=== PATIENT | male | born 1970 | race Caucasian/White ===

== ENCOUNTER 2016-08-15 00:34 | Emergency (ER) | payer MEDICAID ==
[2015-11-20 12:49] VITALS: BMI 29.9
[~2016-08-15 00:34] MED LIST: CATAPRES0.2 MG PO; HYDROCODONE-APA1 TAB PO; KLONOPIN0.5 MG PO; LITHIUM CARBON300 MG PO; LOPRESSOR25 MG PO; PRINZIDE 20/12.1 TA1 PO; PROTONIX40 MG PO; PROZAC40 MG PO; REMERON15 MG PO; REMERON30 MG PO; XANAX1 MG PO; ZANTAC300 MG PO
[2016-08-15 01:14] LABS: BASOPHILS 0.2 % (0.0-2.0); EOSINOPHILS 0.1 % (0-7); HEMATOCRIT 48.9 % (42.0-54.0); HEMOGLOBIN 17.1 g/dL (13.5-17.5); IMMATURE GRANULOCYTES 0.3 % (0-5); LYMPHOCYTES 44.5 % (15-50); MCH 30.3 pg (26.0-34.0); MCV 86.7 fL (80.0-100.0); MEAN PLATELET VOLUME 8.8 fL (7.4-10.4); MONOCYTES 9.8 % (2-11); NEUTROPHILS 45.1 % (40-80); RBC 5.64 10x6/uL (4.20-6.10); RDW 15.8 % (11.5-14.5); WBC 11.5 10x3/uL (4.8-10.8)
[2016-08-15 01:28] LABS: PLATELET COUNT 313 10x3/uL (130-400)
[2016-08-15 01:53] LABS: ALBUMIN 4.7 g/dL (3.4-5.0); ALKALINE PHOSPHATASE 83 U/L (46-116); ALT (SGPT) 44 U/L (10-68); BILIRUBIN - TOTAL 0.21 mg/dL (0.2-1.3); CALC OSMOLALITY 278 mosm/kg (275-300); CALCIUM 9.5 mg/dL (8.5-10.1); CARBON DIOXIDE 27.1 mmol/L (21.0-32.0); CHLORIDE - SERUM 100 mmol/L (98-107); CREATININE - SERUM 1.1 mg/dL (0.6-1.3); POTASSIUM - SERUM 3.7 mmol/L (3.5-5.1); PROTEIN - SERUM 8.5 g/dL (6.4-8.2); SODIUM 140 mmol/L (136-145); UREA NITROGEN 4 mg/dL (7-18); eGFR NON AFRICAN AMERICAN 77 mL/min (90-120)
[2016-08-15 01:55] LABS: GLUCOSE 152 mg/dL (74-106)
[2016-08-15 02:00] LABS: AMYLASE - SERUM 63 U/L (25-115); LIPASE 88 U/L (73-393)
== END 2016-08-15 03:17 | disposition home or self-care (01) ==
LOC: D.ER 00:34
PROVIDERS: Family Medicine
DX: K29.00 Acute gastritis without bleeding (principal); I10 Essential (primary) hypertension; F41.9 Anxiety disorder, unspecified; K86.1 Other chronic pancreatitis; B19.20 Unspecified viral hepatitis C without hepatic coma

== ENCOUNTER → 2016-11-01 12:21 | Outpatient (CLI) | payer MEDICAID ==
[2015-11-20 12:49] VITALS: BMI 29.9
[~2016-11-01 12:21] MED LIST changes: +LISINOPRIL10 MG PO; +METOPROLOL TART50 MG PO; +REVIA50 MG PO; +ZOFRAN4 MG PO
[2016-11-01 14:27] LABS: BASOPHILS 0.3 % (0.0-2.0); EOSINOPHILS 0.4 % (0-7); HEMATOCRIT 45.2 % (42.0-54.0); HEMOGLOBIN 15.4 g/dL (13.5-17.5); IMMATURE GRANULOCYTES 0.5 % (0-5); LYMPHOCYTES 26.9 % (15-50); MCH 31.5 pg (26.0-34.0); MCHC 34.1 g/dL (31.0-37.0); MCV 92.4 fL (80.0-100.0); MEAN PLATELET VOLUME 9.6 fL (7.4-10.4); MONOCYTES 11.1 % (2-11); NEUTROPHILS 60.8 % (40-80); PLATELET COUNT 263 10x3/uL (130-400); RBC 4.89 10x6/uL (4.20-6.10); WBC 10.7 10x3/uL (4.8-10.8)
[2016-11-01 14:41] LABS: ALBUMIN 4.4 g/dL (3.4-5.0); ALKALINE PHOSPHATASE 79 U/L (46-116); ALT (SGPT) 48 U/L (10-68); BILIRUBIN - TOTAL 0.36 mg/dL (0.2-1.3); CALC OSMOLALITY 269 mosm/kg (275-300); CALCIUM 9.4 mg/dL (8.5-10.1); CARBON DIOXIDE 26.9 mmol/L (21.0-32.0); CHLORIDE - SERUM 95 mmol/L (98-107); CREATININE - SERUM 0.9 mg/dL (0.6-1.3); GLUCOSE 104 mg/dL (74-106); POTASSIUM - SERUM 4.3 mmol/L (3.5-5.1); SODIUM 136 mmol/L (136-145); UREA NITROGEN 7 mg/dL (7-18); eGFR NON AFRICAN AMERICAN > 90 mL/min (90-120)
[2016-11-03 11:17] LABS: TESTOSTERONE - SERUM 1325 ng/dL (348-1197)
== END | disposition home or self-care (01) ==
LOC: D.LABREF 12:21
PROVIDERS: Family Medicine
DX: I10 Essential (primary) hypertension (principal); E23.3 Hypothalamic dysfunction, not elsewhere classified

== ENCOUNTER 2016-11-17 09:25 | Inpatient (IN) | payer MEDICAID ==
[~2016-11-17] VITALS: Ht 180.3 cm; Wt 90.9 kg
[~2016-11-17 09:25] MED LIST changes: -LISINOPRIL10 MG PO; -METOPROLOL TART50 MG PO; -REVIA50 MG PO; -ZOFRAN4 MG PO
[2016-11-17 10:04] LABS: APPEARANCE HAZY (CLEAR); COLOR DK YELLOW (YELLOW)
[2016-11-17 10:05] LABS: BILIRUBIN NEGATIVE (NEGATIVE); GLUCOSE 50 mg/dL (NEGATIVE); KETONE MODERATE mg/dL (NEGATIVE); LEUKOCYTE ESTERASE TRACE (NEGATIVE); NITRITE NEGATIVE (NEGATIVE); PROTEIN 2+ mg/dL (NEGATIVE); SPECIFIC GRAVITY 1.025 (1.005-1.020); UROBILINOGEN NORMAL (NORMAL); WHITE CELLS - URINE OCC /hpf (0-5)
[2016-11-17 10:06] LABS: BACTERIA FEW /hpf (NONE SEEN); EPITHELIAL CELLS RARE /hpf (0-5)
[2016-11-17 10:06] LABS: BASOPHILS 0.2 % (0.0-2.0); EOSINOPHILS 0.4 % (0-7); HEMATOCRIT 54.1 % (42.0-54.0); HEMOGLOBIN 18.7 g/dL (13.5-17.5); IMMATURE GRANULOCYTES 0.4 % (0-5); LYMPHOCYTES 18.2 % (15-50); MCH 32.7 pg (26.0-34.0); MCHC 34.6 g/dL (31.0-37.0); MCV 94.6 fL (80.0-100.0); MEAN PLATELET VOLUME 9.6 fL (7.4-10.4); NEUTROPHILS 71.8 % (40-80); PLATELET COUNT 242 10x3/uL (130-400); RBC 5.72 10x6/uL (4.20-6.10); RDW 14.2 % (11.5-14.5); WBC 11.3 10x3/uL (4.8-10.8)
[2016-11-17 10:47] LABS: ALBUMIN 4.2 g/dL (3.4-5.0); ALKALINE PHOSPHATASE 100 U/L (46-116); ALT (SGPT) 52 U/L (10-68); AMYLASE - SERUM 154 U/L (25-115); BILIRUBIN - TOTAL 1.48 mg/dL (0.2-1.3); CALC OSMOLALITY 267 mosm/kg (275-300); CALCIUM 9.6 mg/dL (8.5-10.1); CARBON DIOXIDE 22.2 mmol/L (21.0-32.0); CHLORIDE - SERUM 94 mmol/L (98-107); CREATININE - SERUM 0.8 mg/dL (0.6-1.3); GLUCOSE 141 mg/dL (74-106); LIPASE 1419 U/L (73-393); POTASSIUM - SERUM 4.4 mmol/L (3.5-5.1); PROTEIN - SERUM 8.2 g/dL (6.4-8.2); SODIUM 133 mmol/L (136-145); UREA NITROGEN 12 mg/dL (7-18); eGFR NON AFRICAN AMERICAN > 90 mL/min (90-120)
[2016-11-17] MEDS ORDERED: METOPROLOL TART50 MG PO (14:40)
[2016-11-17 14:58] VITALS: BP 195/130; BMI 29.3
--- NOTE | 2016-11-17 15:48 | NUR ---
PATIENT STILL CO PAIN. SPOKE WITH DR. MENA AND A 1 TIME ORDER OF DILAUDID 1 MG GIVEN IV.
[2016-11-17 20:00] VITALS: BP 183/118
--- NOTE | 2016-11-17 21:58 | NUR ---
ZOFRAN 4 MG IVP GIVEN SLOWLY FOR NAUSEA.
--- NOTE | 2016-11-17 23:11 | NUR ---
ATIVAN 1 MG IVP GIVEN PER RQUEST FOR SLEEP AND ANXIETY.
--- NOTE | 2016-11-17 23:30 | NUR ---
DR. FRANCO CALLED RE: NEEDING MORE PAIN MEDICATION.
--- NOTE | 2016-11-18 00:10 | NUR ---
REBECA NUR APN RETURNED CALL. NEW ORDER RECEIVED AND NOTED. PHNERGAN 12.5 MG IM GIVEN IN LEFT UPPER OUTER QUAD.
[2016-11-18 00:49] VITALS: BP 132/20
--- NOTE | 2016-11-18 01:04 | NUR ---
DILAUDID 1 MG IVP SLOWLY GIVEN FOR LEVEL#7 ABDOMEN PAIN.
--- NOTE | 2016-11-18 03:08 | NUR ---
DILAUDID 1 MG IVP SLOWLY GIVEN FOR LEVEL #8 ABDOMINAL PAIN.
[2016-11-18 05:42] VITALS: BP 131/85
[2016-11-18 05:45] LABS: BASOPHILS 0.1 % (0.0-2.0); EOSINOPHILS 0.2 % (0-7); HEMATOCRIT 52.5 % (42.0-54.0); HEMOGLOBIN 17.7 g/dL (13.5-17.5); IMMATURE GRANULOCYTES 0.3 % (0-5); LYMPHOCYTES 14.5 % (15-50); MCH 32.1 pg (26.0-34.0); MCHC 33.7 g/dL (31.0-37.0); MCV 95.3 fL (80.0-100.0); MEAN PLATELET VOLUME 9.5 fL (7.4-10.4); MONOCYTES 8.1 % (2-11); NEUTROPHILS 76.8 % (40-80); PLATELET COUNT 227 10x3/uL (130-400); RBC 5.51 10x6/uL (4.20-6.10); RDW 14.3 % (11.5-14.5); WBC 12.4 10x3/uL (4.8-10.8)
[2016-11-18 05:53] LABS: INR 0.92 (0.85-1.17); PROTIME 12.2 SECONDS (11.6-15.0)
--- NOTE | 2016-11-18 06:00 | NUR ---
WENT OUTSIDE WITH GIRLFRIEND TO SMOKE PRIOR TO RECEIVING PAIN MEDICATION. WILL CONTINUE TO MONITOR.
[2016-11-18 06:15] LABS: ALBUMIN 3.8 g/dL (3.4-5.0); ALKALINE PHOSPHATASE 87 U/L (46-116); ALT (SGPT) 40 U/L (10-68); BILIRUBIN - TOTAL 1.08 mg/dL (0.2-1.3); CALC OSMOLALITY 272 mosm/kg (275-300); CALCIUM 9.3 mg/dL (8.5-10.1); CHLORIDE - SERUM 97 mmol/L (98-107); GLUCOSE 124 mg/dL (74-106); PHOSPHOROUS 3.1 mg/dL (2.5-4.9); POTASSIUM - SERUM 3.8 mmol/L (3.5-5.1); SODIUM 136 mmol/L (136-145); UREA NITROGEN 13 mg/dL (7-18); eGFR NON AFRICAN AMERICAN 86 mL/min (90-120)
[2016-11-18 06:18] LABS: AMYLASE - SERUM 252 U/L (25-115); CARBON DIOXIDE 28.2 mmol/L (21.0-32.0); LIPASE 2224 U/L (73-393)
--- NOTE | 2016-11-18 08:16 | NUR ---
UPON MEETING PT NOTICED R.HAND PIV WAS INFILTRATED. D/C WITH CATHETER TIP FULLY INTACT. ATTEMPTED NEW STICK WITH CASTING HOUSE WORKER CECIL. NO ACCESS GRANTED, PERFORMANCE ANALYST WHO IS A RN ATTEMPTED AND STILL NO ACCESS SO I CALLED VASCULAR NURSE TO TRY. PT IS IN SEVERE PAIN ABDOMINALLY RATES ITS 10/10 REQUESTING HIS PRN PAIN MED AND NAUSEA MED HOWEVER WE NEED IV ACCESS. WILL CPOC.
[2016-11-18 08:22] VITALS: BP 145/100
--- NOTE | 2016-11-18 08:26 | NUR ---
ADMINISTERED PRN DILAUDID REQUESTED. ALSO ADMINISTERED PRN ZOFRAN AND EARLY R/T PT ACTIVELY VOMITING CLEAR EMESIS AND HIS LAST DOSE WAS GIVEN VIA AN INFILTRATED PIV. NEW ACCESS GAINED VIA YECENIA SHEPARD, VASCULAR NURSE. CHIARA CDI AND SWAB CAPS IN USE. RECONNECTED PT TO HIS IV FLUIDS ORDERED. PT DENIES ANY FURTHER NEEDS AT THIS TIME AND VOICED THANKS. CL IN REACH. WILL CPOC.
--- NOTE | 2016-11-18 08:46 | NUR ---
IV ACCESS-20 GAUGE, 1 3/4 CM CATHETER INSERTED IN LEFT UPPER ARM FOR ACCESS. YECENIA MORATAYA RN
--- NOTE | 2016-11-18 10:28 | NUR ---
PT C/O BEING ANXIOUS/AGITATED, REQUESTING AND PROVIDED WITH PRN ATIVAN. PT VOICED THANKS AND DENIES ANY FURTHER NEEDS AT THIS TIME. CL IN REACH. WILL CPOC.
--- NOTE | 2016-11-18 11:00 | NUR ---
OFFERED SCDS AND PT REFUSED FOR BEING AMBULATORY PT WALKS DOWNSTAIRS AND OFTEN IS OOB.
--- NOTE | 2016-11-18 13:15 | NUR ---
PT THROWING UP RED CONTRAST DRINK FROM CT. TALKED TO REBECA NUR APN WHO IS AT DESK AND GOT VERBAL ORDER TO CHANGE ZOFRAN FROM Q6 TO Q4. WILL ADMINISTER AND CPOC.
[2016-11-18 13:42] VITALS: Ht 180.3 cm; Wt 90.9 kg
[2016-11-18 15:03] LABS: CKMB 1.6 U/L (0.0-3.6); CREATINE KINASE 46 UL (21-232)
[2016-11-18 16:03] VITALS: BP 156/110
[2016-11-18 19:11] LABS: CKMB 1.7 U/L (0.0-3.6); CREATINE KINASE 54 UL (21-232)
[2016-11-18 19:15] LABS: TROPONIN-I 0.076 ng/mL (0.000-0.060)
[2016-11-18 20:00] VITALS: BP 136/93
--- NOTE | 2016-11-18 23:40 | NUR ---
RESUMED CARE OF PT, PT SLEEPING, BED IS LOW, SRX2, CALL LIGHT IN REACH, WILL CONTINUE TO MONITOR
--- NOTE | 2016-11-19 00:52 | NUR ---
PT ASKING TO BE UNHOOK FROM IV, WANTS TO GO OUTSIDE, TOLD HIM I WOULD LIKE FOR HIM TO STAY ON FLOOR
--- NOTE | 2016-11-19 01:11 | NUR ---
PT IS BACK IN ROOM
[2016-11-19 01:49] LABS: CKMB 1.7 U/L (0.0-3.6); CREATINE KINASE 43 UL (21-232); TROPONIN-I 0.037 ng/mL (0.000-0.060)
[2016-11-19 02:00] VITALS: BP 139/88
--- NOTE | 2016-11-19 03:07 | NUR ---
GAVE DIDULID AND ZOFRAN
[2016-11-19 04:30] VITALS: BP 127/70
[2016-11-19 05:46] LABS: BASOPHILS 0.1 % (0.0-2.0); EOSINOPHILS 0.4 % (0-7); HEMOGLOBIN 14.2 g/dL (13.5-17.5); IMMATURE GRANULOCYTES 0.3 % (0-5); LYMPHOCYTES 26.7 % (15-50); MCH 32.6 pg (26.0-34.0); MCHC 34.3 g/dL (31.0-37.0); MCV 95.2 fL (80.0-100.0); MEAN PLATELET VOLUME 9.5 fL (7.4-10.4); MONOCYTES 8.4 % (2-11); NEUTROPHILS 64.1 % (40-80)
[2016-11-19 05:49] LABS: HEMATOCRIT 41.4 % (42.0-54.0); PLATELET COUNT 180 10x3/uL (130-400); RBC 4.35 10x6/uL (4.20-6.10); WBC 7.2 10x3/uL (4.8-10.8)
[2016-11-19 05:59] LABS: INR 1.09 (0.85-1.17)
[2016-11-19 06:17] LABS: ALKALINE PHOSPHATASE 62 U/L (46-116); BILIRUBIN - TOTAL 0.95 mg/dL (0.2-1.3); CALC OSMOLALITY 273 mosm/kg (275-300); CALCIUM 8.6 mg/dL (8.5-10.1); CARBON DIOXIDE 25.7 mmol/L (21.0-32.0); CHLORIDE - SERUM 101 mmol/L (98-107); CREATININE - SERUM 0.8 mg/dL (0.6-1.3); GLUCOSE 114 mg/dL (74-106); LIPASE 391 U/L (73-393); POTASSIUM - SERUM 3.6 mmol/L (3.5-5.1); PROTEIN - SERUM 6.6 g/dL (6.4-8.2); SODIUM 137 mmol/L (136-145); UREA NITROGEN 10 mg/dL (7-18); eGFR NON AFRICAN AMERICAN > 90 mL/min (90-120)
[2016-11-19 06:18] LABS: ALT (SGPT) 27 U/L (10-68); AMYLASE - SERUM 85 U/L (25-115)
[2016-11-19 07:51] VITALS: BP 144/91
--- NOTE | 2016-11-19 07:51 | NUR ---
AWAKE CO OF PAIN( # 7). REVIEWED PAIN MED AND NAUSEA MED TIMES. PT UNDERSTANDS AND VERBALIZES THIS. PT ALSO STATES HE IS HUNGRY. BANANA BAG GOING @[address] @ 102. WILL CONTINUE TO MONITOR.
--- NOTE | 2016-11-19 11:00 | NUR ---
ASSUMED CARE FOR THIS PT FOR THE REMAINDER OF [employer] DAY[employer]. INTRODUCED MYSELF TO PT PRIMARY RN FOR TODAY. NO CURRENT NEEDS AT THIS TIME. WILL CHECK CHART ORDERS AND CPOC.
[2016-11-19 12:00] VITALS: BP 151/100
--- NOTE | 2016-11-19 12:47 | NUR ---
PT LEAVING FOR CT SCAN.
--- NOTE | 2016-11-19 13:15 | NUR ---
PT BACK FROM CT. RESTING QUIETLY IN BED WITH VISITOR AT BEDSIDE. DENIES ANY CURRENT NEEDS. WILL CPOC.
--- NOTE | 2016-11-19 15:14 | NUR ---
PT C/O SEVERE ABDOMINAL PAIN REQUESTED AND PROVIDED WITH PRN DILAUDID ALONG WITH ZOFRAN R/T NAUSEA. PT HAS FRIEND AT BEDSIDE VISITING. DENIES ANY FURTHER NEEDS. WILL CPOC.
--- NOTE | 2016-11-19 19:30 | NUR ---
RECEIVED REPORT, PT IS UP ABLIB, IV-L. UPPER ARM- BAN. @30, BED IS LOW, SRX2, CALL LIGHT IN REACH, WILL CONTINUE TO MONITOR
[2016-11-19 20:23] VITALS: BP 142/102
--- NOTE | 2016-11-19 21:57 | NUR ---
PT RESTING SOUNDLY WITHOUT C/O OR DISTRESS NOTED. NO NEEDS VOICED. CALL LIGHT WITHIN REACH. WILL CONT TO MONITOR.
--- NOTE | 2016-11-19 23:13 | NUR ---
GAVE DIDULID AND ZOFRAN, WILL CONTINUE TO MONITOR
[2016-11-20 00:07] VITALS: BP 165/111
--- NOTE | 2016-11-20 01:53 | NUR ---
GAVE ZOFRMIGUEL AND HARRISON
[2016-11-20 04:26] VITALS: BP 142/88
[2016-11-20 06:52] LABS: BASOPHILS 0.1 % (0-2); EOSINOPHILS 0.6 % (0-7); HEMATOCRIT 41.4 % (42.0-54.0); HEMOGLOBIN 13.9 g/dL (13.5-17.5); IMMATURE GRANULOCYTES 0.3 % (0-5); LYMPHOCYTES 23.7 % (15-50); MCH 32.1 pg (26.0-34.0); MCHC 33.6 g/dL (31.0-37.0); MCV 95.6 fL (80.0-100.0); MEAN PLATELET VOLUME 9.5 fL (7.4-10.4); MONOCYTES 7.1 % (2-11); NEUTROPHILS 68.2 % (40-80); PLATELET COUNT 182 10x3/uL (130-400); RBC 4.33 10x6/uL (4.20-6.10); RDW 13.9 % (11.5-14.5); WBC 7.1 10x3/uL (4.8-10.8)
[2016-11-20 07:01] LABS: INR 1.02 (0.85-1.17); PROTIME 13.2 SECONDS (11.6-15.0)
--- NOTE | 2016-11-20 07:04 | NUR ---
0700-AM ROUNDING DONE WITH PATIENT NOT IN HIS ROOM.
[2016-11-20 07:10] LABS: ALBUMIN 3.3 g/dL (3.4-5.0); ALKALINE PHOSPHATASE 67 U/L (46-116); BILIRUBIN - TOTAL 0.84 mg/dL (0.2-1.3); CALC OSMOLALITY 263 mosm/kg (275-300); CALCIUM 8.8 mg/dL (8.5-10.1); CARBON DIOXIDE 23.5 mmol/L (21.0-32.0); CHLORIDE - SERUM 96 mmol/L (98-107); CREATININE - SERUM 0.8 mg/dL (0.6-1.3); GLUCOSE 89 mg/dL (74-106); LIPASE 319 U/L (73-393); POTASSIUM - SERUM 3.7 mmol/L (3.5-5.1); PROTEIN - SERUM 7.2 g/dL (6.4-8.2); SODIUM 133 mmol/L (136-145); UREA NITROGEN 11 mg/dL (7-18); eGFR NON AFRICAN AMERICAN > 90 mL/min (90-120)
[2016-11-20 07:11] LABS: ALT (SGPT) 34 U/L (10-68); AMYLASE - SERUM 58 U/L (25-115)
--- NOTE | 2016-11-20 07:34 | NUR ---
PATIENT BACK IN ROOM REQUESTING PAIN AND NAUSEA MEDICATION. RATES PAIN 8/10.
[2016-11-20 08:12] VITALS: BP 140/117
--- NOTE | 2016-11-20 08:25 | NUR ---
B/P IS 140/117, WENT TO GIVE APRESOLINE, PATIENT IS NOT IN HIS ROOM AGAIN.
--- NOTE | 2016-11-20 08:35 | NUR ---
BACK IN ROOM NOW.
--- NOTE | 2016-11-20 10:05 | NUR ---
0950-REQUESTING NOEMÍ, GIVEN.
--- NOTE | 2016-11-20 10:49 | NUR ---
1040-OUT OF ROOM.
[2016-11-20 12:46] VITALS: BP 157/97
--- NOTE | 2016-11-20 14:57 | NUR ---
EKG DONE ORDERED.
[2016-11-20 15:46] VITALS: BP 166/107
--- NOTE | 2016-11-20 17:14 | NUR ---
COMPLAINTS OF "BURNING TO STOMACH AREA", REQUESTING PAIN MEDICATION. REYES HAS NOT LEFT THE FLOOR SINCE DR FRANCO TALKED TO HIM. RATES PAIN 7/10, DILAUDID GIVEN. ON CLEAR LIQUIDS.
--- NOTE | 2016-11-20 19:30 | NUR ---
RECEIVED REPORT, WATCHING TV, IV-R.HAND-BAN. @30, BED IS LOW, SRX1, CALL LIGHT IN REACH, WILL CONTINUE TO MONITOR
[2016-11-20 20:07] VITALS: BP 146/102
[2016-11-21] VITALS (7 sets, daily range): BP systolic 128–164; BP diastolic 86–125
[2016-11-21 06:16] LABS: BASOPHILS 0.2 % (0-2); HEMATOCRIT 41.7 % (42.0-54.0); HEMOGLOBIN 14.1 g/dL (13.5-17.5); IMMATURE GRANULOCYTES 0.2 % (0-5); LYMPHOCYTES 41.8 % (15-50); MCH 32.1 pg (26.0-34.0); MCHC 33.8 g/dL (31.0-37.0); MEAN PLATELET VOLUME 9.5 fL (7.4-10.4); NEUTROPHILS 45.8 % (40-80); PLATELET COUNT 194 10x3/uL (130-400); RBC 4.39 10x6/uL (4.20-6.10); RDW 13.8 % (11.5-14.5)
[2016-11-21 06:17] LABS: WBC 4.9 10x3/uL (4.8-10.8)
[2016-11-21 06:30] LABS: INR 0.99 (0.85-1.17); PROTIME 12.9 SECONDS (11.6-15.0)
[2016-11-21 06:39] LABS: ALBUMIN 3.2 g/dL (3.4-5.0); ALKALINE PHOSPHATASE 65 U/L (46-116); ALT (SGPT) 31 U/L (10-68); AMYLASE - SERUM 51 U/L (25-115); BILIRUBIN - TOTAL 0.72 mg/dL (0.2-1.3); CALC OSMOLALITY 269 mosm/kg (275-300); CHLORIDE - SERUM 99 mmol/L (98-107); CREATININE - SERUM 0.9 mg/dL (0.6-1.3); GLUCOSE 109 mg/dL (74-106); LIPASE 313 U/L (73-393); PHOSPHOROUS 2.9 mg/dL (2.5-4.9); POTASSIUM - SERUM 3.9 mmol/L (3.5-5.1); PROTEIN - SERUM 7.1 g/dL (6.4-8.2); SODIUM 135 mmol/L (136-145); UREA NITROGEN 10 mg/dL (7-18); eGFR NON AFRICAN AMERICAN > 90 mL/min (90-120)
--- NOTE | 2016-11-21 07:17 | NUR ---
0700-AM ROUNDING DONE WITH PATIENT ON CELL PHONE AMBULATING IN ROOM. SALINE LOCK SEEN TO RIGHT HAND, BANANA BAG WAS NOT COMPLETED. ON ROOM AIR. ON HEART MONITOR SHOWING ST, HR 112. ON EP, LAB VALUES WNL. ATIVAN, DILAUDID, AND ZOFRAN WERE GIVEN AT 0552. WILL CONTINUE TO FOLLOW.
--- NOTE | 2016-11-21 15:14 | NUR ---
PAGE INTO DR FRANCO TERESITA HAS BEEN DC'D ON THE EMAR. AWAITING CALL BACK.
--- NOTE | 2016-11-21 15:16 | NUR ---
DR FRANCO TO CALL BACK WITH NEW ORDERS.
--- NOTE | 2016-11-21 17:51 | NUR ---
TOLERATED REGULAR SUPPER WITHOUT ANY PROBLEMS. NICOTINE PATCH STILL TO LEFT UPPER ARM. BANANA BAG INFUSING AT 30 CC/HR.
--- NOTE | 2016-11-21 19:29 | NUR ---
RESUMED CARE OF PT, LYING IN BED RESPIRATIONS EVEN AND UNLABORED ON ROOM AIR. 95 SR ON TELEMETRY. RIGHT HAND INFUSING A BANANA BAG @ 30. REQUESTS PAIN, NAUSEA, AND ANXIETY MEDICATION, STATES IT IS DUE. WILL CONTINUE TO MONITOR. CALL LIGHT IN REACH. SEE NURSE ASSESSMENT.
[2016-11-22 03:41] VITALS: BP 135/84
--- NOTE | 2016-11-22 05:19 | NUR ---
UP TO SHOWER, LINENS CHANGED. WILL CONTINUE TO MONITOR.
[2016-11-22 06:10] LABS: BASOPHILS 0.3 % (0-2); HEMATOCRIT 41.5 % (42.0-54.0); HEMOGLOBIN 14.1 g/dL (13.5-17.5); IMMATURE GRANULOCYTES 0.3 % (0-5); LYMPHOCYTES 37.3 % (15-50); MCH 32.4 pg (26.0-34.0); MCV 95.4 fL (80.0-100.0); MEAN PLATELET VOLUME 9.7 fL (7.4-10.4); MONOCYTES 9.4 % (2-11); NEUTROPHILS 51.7 % (40-80); PLATELET COUNT 211 10x3/uL (130-400); RBC 4.35 10x6/uL (4.20-6.10); RDW 13.8 % (11.5-14.5); WBC 5.9 10x3/uL (4.8-10.8)
[2016-11-22 06:22] LABS: INR 0.95 (0.85-1.17); PROTIME 12.5 SECONDS (11.6-15.0)
--- NOTE | 2016-11-22 06:25 | NUR ---
NO CHANGES FROM PREVIOUS ASSESSMENT, CALL LIGHT IN REACH.
[2016-11-22 06:29] LABS: ALBUMIN 3.2 g/dL (3.4-5.0); ALKALINE PHOSPHATASE 57 U/L (46-116); ALT (SGPT) 30 U/L (10-68); CALC OSMOLALITY 269 mosm/kg (275-300); CARBON DIOXIDE 26.9 mmol/L (21.0-32.0); CHLORIDE - SERUM 100 mmol/L (98-107); CREATININE - SERUM 0.9 mg/dL (0.6-1.3); GLUCOSE 119 mg/dL (74-106); LIPASE 333 U/L (73-393); MAGNESIUM - SERUM 1.9 mg/dL (1.8-2.4); PHOSPHOROUS 3.4 mg/dL (2.5-4.9); PROTEIN - SERUM 6.9 g/dL (6.4-8.2); SODIUM 135 mmol/L (136-145); UREA NITROGEN 9 mg/dL (7-18); eGFR NON AFRICAN AMERICAN > 90 mL/min (90-120)
[2016-11-22 06:35] LABS: AMYLASE - SERUM 79 U/L (25-115)
--- NOTE | 2016-11-22 09:15 | NUR ---
PT SITTING UP IN BED RESTING QUIETLY WATCHING TV. PT STATES BREAKFAST WAS GOOD AND HE TOLERATED WELL. PT IS C/O PAIN ALL OVER AND SLIGHT NAUSEA REQUESTING AND PROVIDED WITH PRN PAIN MED, ANXIETY MED AND NAUSEA MED. PT IS HOPING TO GO HOME TODAY. DENIES ANY FURTHER NEEDS AT THIS TIME. WILL CPOC.
--- NOTE | 2016-11-22 11:29 | NUR ---
PT REFUSED HIS BANANA BAG FLUIDS. DENIES THE NEED SINCE HE IS EATING AND DRINKING NOW AND ALSO REFUSES TO BE CONNECTED TO IV POLE. PT DENIES ANY CURRENT NEEDS. CL IN REACH. WILL CPOC.
[2016-11-22 12:19] VITALS: BP 149/98
--- NOTE | 2016-11-22 13:16 | NUR ---
PT CALLED REQUESTING PRN PAIN MED AND NAUSEA AND WAS PROVIDED WITH IT. PT DENIES ANY FURTHER NEEDS AT THIS TIME. CL IN REACH. WILL CPOC.
[2016-11-22] MEDS ORDERED: ZOFRAN4 MG PO (13:52)
[2016-11-22] MEDS ORDERED: REVIA50 MG PO (13:53)
[2016-11-22] MEDS ORDERED: LISINOPRIL10 MG PO (13:54)
--- NOTE | 2016-11-22 15:11 | NUR ---
D/C PTS L.HAND PIV WITH CATHETER TIP FULLY INTACT. DISCHARGE TEACHING PROVIDED AND ALL QUESTIONS ANSWERED. TELEMETRY RETURNED TO [place]. PT DENIES ANY FURTHER NEEDS.
--- NOTE | 2016-11-22 15:43 | NUR ---
Patient Name: YUDELKA ARCOS Admission Status: ER Accout number: [id number] Admission Date: 11-18-2016 : 1970 Admission Diagnosis:NAUSEA WITH VOMITING, UNSPECIFIED Attending: BOBY Current LOS: 4 Anticipated DC Date: 11-22-2016 Planned Disposition: Home Primary Insurance: MEDICAID [place] LATE ENTRY: Discharge Planning Comments: * Is the patient Alert and Oriented? Yes 0 * How many steps to enter\exit or inside your home? 5 0 * PCP DR. CHEEK 0 * Pharmacy [facility] 0 * Preadmission Environment Home with Family 0 * ADLs Independent 0 * Equipment None 0 * Other Equipment NO MEDICAL EQUIPMENT PROVIDER PREFERENCE 0 * List name and contact numbers for known caregivers / representatives who currently or will assist patient after discharge: [facility], 0 * Community resources currently utilized None 0 * Please name any agencies selected above. NONE 0 * Additional services required to return to the preadmission environment? No 0 * Can the patient safely return to the preadmission environment? Yes 0 * Has this patient been hospitalized within the prior 30 days at any hospital? No 0 CM MET WITH PT IN ROOM TO DISCUSS DISCHARGE PLANNING AND NEEDS. PT REPORTS LIVING AT HOME INDEPENDENTLY WITH HIS MOTHER. PT HAS NO MEDICAL EQUIPMENT AND NO OUTSIDE SERVICES ASSISTING IN THE HOME. CM DISCUSSED AVAILABILITY OF HOME HEALTH, REHAB SERVICES AND MEDICAL EQUIPMENT. PT DENIES DISCHARGE NEEDS, REPORTS HIS MOTHER WILL PICK HIM UP FOR DISCHARGE HOME. Retort Engineer: Anam Lemus
== END 2016-11-22 15:13 | disposition home or self-care (01) | DRG 440 ==
LOC: D.ER 09:25 → D.M2 13:47 → OBSVTIME 13:47 → D.M2 11-18 11:30
PROVIDERS: Emergency Medicine; ADMIT Family Medicine
DX: K85.90 Acute pancreatitis without necrosis or infection, unspecified (principal); I16.0 Hypertensive urgency; F41.9 Anxiety disorder, unspecified; F10.10 Alcohol abuse, uncomplicated; F12.10 Cannabis abuse, uncomplicated; R07.9 Chest pain, unspecified; Z72.0 Tobacco use

== ENCOUNTER 2017-10-20 05:26 | Day surgery (SDC) | payer MEDICAID ==
[2017-10-18 12:03] LABS: HEMATOCRIT 47.1 % (42.0-54.0); HEMOGLOBIN 16.2 g/dL (13.5-17.5); MCH 32.7 pg (26.0-34.0); MCHC 34.4 g/dL (31.0-37.0); MCV 95.2 fL (80.0-100.0); MEAN PLATELET VOLUME 9.9 fL (7.4-10.4); RBC 4.95 10x6/uL (4.20-6.10); RDW 13.9 % (11.5-14.5); WBC 5.6 10x3/uL (4.8-10.8)
[~2017-10-20] VITALS: Ht 180.3 cm; Wt 95.3 kg
--- NOTE | ~2017-10-20 | OP ---
PATIENT NAME: YUDELKA ARCOS MEDICAL RECORD: [id number] :74 LOCATION:VITOR ADMISSION DATE: SURGEON: NICKOLAS VICKERS MD DATE OF OPERATION: 10/20/2017 PREOPERATIVE DIAGNOSES: AC separation, rotator cuff tear, biceps tendinitis and impingement. POSTOPERATIVE DIAGNOSES: Distal clavicle malunion, rotator cuff tear large, biceps tendinitis and impingement. PROCEDURES: 1. Arthroscopic rotator cuff repair. 2. Biceps tenodesis. 3. Distal clavicle excision. 4. Subacromial decompression. SURGEON: Nickolas Vickers MD ANESTHESIA: General. INTRAOPERATIVE COMPLICATIONS: None. SUMMARY OF PATHOLOGIC FINDINGS: The patient had a rupture from about half of the subscapularis to about half of the infraspinatus with medial retraction. The patient also had what was thought to be an AC separation; however, upon dissection he had a malunited clavicle with hypertrophic osteophytes that essentially require distal clavicle excision without AC reconstruction as its conoid and trapezoid ligament were intact. He had a downward sloping acromion, very sharp, type 3, also had severe biceps tendinitis with greater than hypertrophy synovitis. Intraoperative photographs were taken. OPERATIVE SUMMARY IN DETAIL: After obtaining the appropriate preoperative orthopedic surgery consent as well as anesthetic consultation, evaluation and clearance, the patient was brought to the operating room and placed on the table in supine position. After general laryngeal mask was administered, the patient was placed in left lateral decubitus position. All pressure points were well padded to include down leg peroneal nerve pad as well as axillary roll. The patient was held firmly to the operating table using the vacuum pack suction system. Right upper extremity and shoulder were prepped and draped in routine sterile fashion. The arm was held in the Arthrex traction boom at 30 degrees of forward flexion, 30 degrees of abduction with 10 pounds of traction laterally. Arthroscopy was established in the glenohumeral joint from a posterior portal. Anterior portal was established in the anterior safe interval. Diagnostic arthroscopy immediately showed the patient had a severe biceps tendinitis, bicipital labral complex tear at the SLAP lesion. The patient also had a very large rotator cuff tear. The excoriation of the undersurface of the acromion could be seen through the rotator cuff tear. At this point, attention was turned to the subacromial space. In the subacromial space, [place] tissue ablation system was utilized to denude the undersurface of the acromion of all soft tissue elements. A 5-0 barrel bur was used to perform acromioplasty at the level of the acromioclavicular joint. Having completed this, attention was turned to biceps tendon that was grasped intact with the Scorpion punch passer, cut at the bicipital root and then a size 8 biceps tenodesis screw was then utilized for the bicipital tenodesis. Having completed this, attention was OPERATIVE REPORT [id number] YUDELKA ARCOS turned to the distal clavicle. The distal clavicle was not subluxed, the superior aspect of it, however, had what appeared to be old bony fragments that were removed. 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 Having completed this, attention was turned to the rotator cuff. Rotator cuff tear was fixed with a combination of the Arthrex SpeedBridge as well as using the tails of the bicipital tenodesis screw to secure the subscap, the posterior leaflet was also secured using further combination of a 4.75 Arthrex SwiveLock. The entire construct was well seated and well tensioned to the denuded greater tuberosity. Having completed this, wounds were closed in the usual fashion. Sterile dressings were applied. The patient was awakened and taken to recovery room in stable condition. All final needle and sponge counts were correct. TRANSINT:[id number] Voice Confirmation ID: [id number] DOCUMENT ID: [id number] RANCHO CARDENAS, NICKOLAS LERMA at 1446 CC: [id number] DICTATION DATE: 10/20/17 0958 REAL ESTATE FIRM MANAGER: 10/20/17 1055 [facility] 10/20/[address] [address]
[~2017-10-20 05:26] MED LIST changes: +CYCLOBENZAPRINE10 MG PO; +LIBRIUM25 MG PO; +LISINOPRIL-HCTZ1 T13 PO; +LISINOPRIL10 MG PO; +METOPROLOL TART50 MG PO; +MULTIPLE VITAMI1 TA1 PO; +NEURONTIN 300300 MG PO; +REVIA50 MG PO; +TESTOSTERON200 MG/ML IM; +ULTRAM50 MG PO; +ZANTAC150 MG PO; +ZOFRAN4 MG PO
[2017-10-20 06:39] VITALS: BP 107/81; Ht 180.3 cm; Wt 95.3 kg
[2017-10-20] MEDS ORDERED: DILAUDID2 MG PO (09:52)
== END 2017-10-20 11:45 | disposition home or self-care (01) ==
LOC: D.OPS 05:26 → D.PAN 07:30 → D.OPS 11:45
PROVIDERS: Anesthesiology
DX: M75.121 Complete rotator cuff tear or rupture of right shoulder, not specified as traumatic (principal); M75.41 Impingement syndrome of right shoulder; S43.101A Unspecified dislocation of right acromioclavicular joint, initial encounter; F17.200 Nicotine dependence, unspecified, uncomplicated; I10 Essential (primary) hypertension; K21.9 Gastro-esophageal reflux disease without esophagitis; M75.21 Bicipital tendinitis, right shoulder; Z01.812 Encounter for preprocedural laboratory examination

== ENCOUNTER 2017-10-21 05:16 | Emergency (ER) | payer MEDICAID ==
[~2017-10-21 05:16] MED LIST changes: +DILAUDID2 MG PO
== END 2017-10-21 06:00 | disposition home or self-care (01) ==
LOC: D.ER 05:16
DX: M25.511 Pain in right shoulder (principal); K86.1 Other chronic pancreatitis; B19.20 Unspecified viral hepatitis C without hepatic coma; I10 Essential (primary) hypertension; F17.200 Nicotine dependence, unspecified, uncomplicated

== ENCOUNTER 2019-01-16 19:12 | Emergency (ER) | payer MEDICAID ==
[~2019-01-16] VITALS: Ht 180.3 cm; Wt 88.6 kg
[2019-01-16 19:16] VITALS: Ht 180.3 cm; Wt 88.6 kg
[2019-01-16 20:48] LABS: ALBUMIN 3.4 g/dL (3.4-5.0); ALKALINE PHOSPHATASE 76 U/L (46-116); ALT (SGPT) 22 U/L (10-68); BILIRUBIN - TOTAL 0.37 mg/dL (0.2-1.3); CALCIUM 9.4 mg/dL (8.5-10.1); CARBON DIOXIDE 26.8 mmol/L (21.0-32.0); CHLORIDE - SERUM 94 mmol/L (98-107); CREATININE - SERUM 0.8 mg/dL (0.6-1.3); POTASSIUM - SERUM 3.7 mmol/L (3.5-5.1); PROTEIN - SERUM 7.7 g/dL (6.4-8.2); SODIUM 131 mmol/L (136-145); UREA NITROGEN 7 mg/dL (7-18); eGFR NON AFRICAN AMERICAN > 90 mL/min (90-120)
[2019-01-16 20:51] LABS: BASOPHILS 0.1 % (0-2); EOSINOPHILS 1.5 % (0-7); HEMOGLOBIN 13.9 g/dL (13.5-17.5); IMMATURE GRANULOCYTES 0.1 % (0-5); LYMPHOCYTES 24.5 % (15-50); MCH 31.2 pg (26.0-34.0); MCHC 35.6 g/dL (31.0-37.0); MCV 87.6 fL (80.0-100.0); MEAN PLATELET VOLUME 9.5 fL (7.4-10.4); MONOCYTES 10.9 % (2-11); NEUTROPHILS 62.9 % (40-80); RBC 4.45 10x6/uL (4.20-6.10); RDW 12.9 % (11.5-14.5); WBC 6.9 10x3/uL (4.8-10.8)
[2019-01-16 20:51] LABS: AMYLASE - SERUM 48 U/L (25-115); LIPASE 239 U/L (73-393)
[2019-01-16 20:54] LABS: PLATELET COUNT 125 10x3/uL (130-400)
[2019-01-16 20:58] LABS: CALC OSMOLALITY 267 mosm/kg (275-300); GLUCOSE 224 mg/dL (74-106); TROPONIN-I < 0.017 ng/mL (0.000-0.060)
[2019-01-16] MEDS ORDERED: HYDROCODON-ACE1 EAC7 PO (23:21)
[2019-01-16 23:57] VITALS: BP 199/135
== END 2019-01-16 23:57 | disposition home or self-care (01) ==
LOC: D.ER 19:12
PROVIDERS: Family Medicine
DX: K85.90 Acute pancreatitis without necrosis or infection, unspecified (principal)

== ENCOUNTER 2020-09-27 12:27 | Emergency (ER) | payer MEDICAID ==
[~2020-09-27] VITALS: Ht 180.3 cm; Wt 93.7 kg
[~2020-09-27 12:27] MED LIST changes: +BUPRENORPHIN-N1 EACH SL; +HYDROCODON-ACE1 EAC7 PO; +LISINOPRIL20 MG PO; +OMEPRAZOLE20 M1 PO
[2020-09-27 12:41] VITALS: Ht 180.3 cm; Wt 93.7 kg
[2020-09-27] MEDS ORDERED: AUGMENTIN 875-11 TAB PO (13:49)
[2020-09-27] MEDS ORDERED: VOLTAREN75 MG PO (13:49)
[2020-09-27 14:19] LABS: HEMATOCRIT 40.2 % (42.0-54.0); HEMOGLOBIN 13.5 g/dL (13.5-17.5); LYMPHOCYTE ABS# 2.61 10x3/uL (1.32-3.57); MCH 30.5 pg (26.0-34.0); MCHC 33.6 g/dL (31.0-37.0); MEAN PLATELET VOLUME 9.1 fL (7.4-10.4); PLATELET COUNT 221 10x3/uL (130-400); RBC 4.42 10x6/uL (4.20-6.10); RDW 12.2 % (11.5-14.5); WBC 5.2 10x3/uL (4.8-10.8)
[2020-09-27 14:42] LABS: EOSINOPHILS 3 % (0-7); LYMPHOCYTES 59 % (15-50); MONOCYTES 4 % (2-11); NEUTROPHILS 34 % (40-80); PLATELET ESTIMATE NORMAL
[2020-09-27 14:54] LABS: CALC OSMOLALITY 281 mosm/kg (275-300); CALCIUM 8.8 mg/dL (8.5-10.1); CHLORIDE - SERUM 101 mmol/L (98-107); POTASSIUM - SERUM 4.4 mmol/L (3.5-5.1); SODIUM 136 mmol/L (136-145); UREA NITROGEN 14 mg/dL (7-18); eGFR NON AFRICAN AMERICAN 85 mL/min (90-120)
[2020-09-27 15:00] VITALS: BP 121/68
[2020-09-27 15:00] LABS: ALBUMIN 3.7 g/dL (3.4-5.0); ALKALINE PHOSPHATASE 89 U/L (30-120); ALT (SGPT) 24 U/L (10-68); BILIRUBIN - TOTAL 0.17 mg/dL (0.2-1.3); PROTEIN - SERUM 6.8 g/dL (6.4-8.2)
[2020-09-27 15:03] LABS: GLUCOSE 255 mg/dL (74-106)
== END 2020-09-27 15:30 | disposition home or self-care (01) ==
LOC: D.ER 12:27
PROVIDERS: Family Medicine
DX: S61.212A Laceration without foreign body of right middle finger without damage to nail, initial encounter (principal); S69.91XA Unspecified injury of right wrist, hand and finger(s), initial encounter; W45.0XXA Nail entering through skin, initial encounter; Y93.9 Activity, unspecified; Y92.9 Unspecified place or not applicable; K21.9 Gastro-esophageal reflux disease without esophagitis

== ENCOUNTER 2020-10-02 05:48 | Day surgery (SDC) | payer MEDICAID ==
[~2020-10-02] VITALS: Ht 177.8 cm; Wt 91.2 kg
[~2020-10-02 05:48] MED LIST changes: +AUGMENTIN 875-11 TAB PO; +TOPROL XL25 MG PO; +VOLTAREN75 MG PO
[2020-10-02 06:39] LABS: HEMATOCRIT 47.9 % (42.0-54.0); HEMOGLOBIN 15.8 g/dL (13.5-17.5); MCH 30.4 pg (26.0-34.0); MCV 92.3 fL (80.0-100.0); MEAN PLATELET VOLUME 9.1 fL (7.4-10.4); RBC 5.19 10x6/uL (4.20-6.10); RDW 12.8 % (11.5-14.5); WBC 6.5 10x3/uL (4.8-10.8)
[2020-10-02 07:34] LABS: ANION GAP 14.9 mmol/L (8-16); CALCIUM 10.1 mg/dL (8.5-10.1); CARBON DIOXIDE 26.2 mmol/L (21.0-32.0); CREATININE - SERUM 1.4 mg/dL (0.6-1.3); POTASSIUM - SERUM 4.1 mmol/L (3.5-5.1)
[2020-10-02 11:15] VITALS: BP 154/108; Ht 177.8 cm; Wt 91.2 kg
--- NOTE | 2020-10-02 15:10 | NUR ---
DISCHARGE INSTRUCTIONS REVIEWED WITH PATIENT AND PROVIDED COPY. PT VOICED UNDERSTANDING OF ALL. IV DC'D WITH CATH TIP INTACT. PT GETTINGN DRESSED FOR DISCHARGE.
--- NOTE | 2020-10-02 15:18 | NUR ---
DISCHARGED VIA W/C, ACCOMPANIED BY THIS NURSE, TO POV WITH FRIEND DRIVING. ALL BELONGINGS AND DC PACKET WITH PT.
--- NOTE | 2020-10-06 21:30 | OP ---
PATIENT NAME: YUDELKA ARCOS MEDICAL RECORD: [id number] :74 LOCATION:VITOR ADMISSION DATE: SURGEON: ANKITA WARD MD DATE OF OPERATION: 10/02/2020 PREOPERATIVE DIAGNOSIS: Right long finger laceration. POSTOPERATIVE DIAGNOSIS: Right long finger laceration. PROCEDURE PERFORMED: 1. Incision and debridement, right long finger (skin and subcutaneous tissue). 2. Closure of complex wound, right long finger (3 cm). INDICATIONS FOR THE PROCEDURE: Mr. Arcos is a 50-year-old male who injured his right hand approximately 1 week ago when he caught his long finger on a nail. He sustained an open wound to the volar aspect of the finger and was seen in the Emergency Department where the wound was cleaned and bandaged. The wound was left open and is very swollen and inflamed. I believe he would benefit from operative debridement with wound closure. He received antibiotics and tetanus in the Emergency Department and we will plan for arrangements for him to come to the operating room today for wound closure. Risks, benefits and alternatives of surgery were discussed with the patient and consent was obtained. DESCRIPTION OF THE PROCEDURE: The patient was met in the holding area where his identity and confirmation of procedure was performed. The right upper extremity was marked. He was taken to the operating room where he was placed supine on the operating table and anesthesia was administered. A tourniquet was applied to the right arm and the right arm was prepped and draped in a sterile fashion. The patient received preoperative antibiotics and timeout was performed before initiating the case. On initiation of the case, the arm was exsanguinated and the tourniquet was raised. Total tourniquet time was 13 minutes. We then began with debridement of the wound. There is inflammation in the tissues around the wound with some interval granulation tissue. The wound was opened and debrided thoroughly with the forceps and scissors. There was no gross contamination or purulence at this time. The wound was irrigated thoroughly with saline. Cultures were then obtained. The neurovascular bundle was visible along the ulnar aspect of the long finger and appeared intact. The flexor tendon was intact. This appeared to just involve the subcutaneous tissues and skin. Once the debridement was complete, the wound was then closed with 4-0 Prolene suture. Total wound closure measured 3 cm. A sterile dressing was then placed. The patient was turned back over to anesthesia where he was awakened, extubated, and taken to recovery room in stable condition. POSTOPERATIVE PLAN: The patient is going to return home with his family today. He needs to keep the incision clean and dry. We will start him on ciprofloxacin x10 days. Plan to see him back in clinic in 2 weeks. ANESTHESIA: General. COMPLICATIONS: None. ESTIMATED BLOOD LOSS: 5 mL. TRANSINT:[id number] Voice Confirmation ID: [id number] DOCUMENT ID: [id number] OPERATIVE REPORT [id number] YUDELKA ARCOS BRENT M MD at 2130 CC: [id number] DICTATION DATE: 10/02/20 1350 ANALYTIC PROGRAMMER: 10/02/20 1431 [facility] 10/02/20 [id number] [place] [address]
== END 2020-10-02 15:18 | disposition home or self-care (01) ==
LOC: D.OPS 05:48
PROVIDERS: Anesthesiology; ATTEND Orthopaedic Surgery
DX: S61.222A Laceration with foreign body of right middle finger without damage to nail, initial encounter (principal); X58.XXXA Exposure to other specified factors, initial encounter; M25.511 Pain in right shoulder; M75.121 Complete rotator cuff tear or rupture of right shoulder, not specified as traumatic